=== PATIENT | male | born 1945 | race Caucasian/White ===

== ENCOUNTER → 2024-01-05 14:58 | Outpatient (REF) | payer MEDICARE, OTHER, SELFPAY | LOC: HWRCS 14:58 | PROVIDERS: ATTENDING PHYSICIAN Internal Medicine Cardiovascular Disease; FAMILY PHYSICIAN Family Medicine | DX: R06.09 Other forms of dyspnea (principal); R07.89 Other chest pain | CPT/HCPCS: 93306 ==

== ENCOUNTER → 2024-01-08 12:07 | Outpatient (REF) | payer MEDICARE, OTHER, SELFPAY | LOC: DHCBC/DCA 12:07 | PROVIDERS: ATTENDING PHYSICIAN Internal Medicine Cardiovascular Disease; FAMILY PHYSICIAN Family Medicine | DX: R06.09 Other forms of dyspnea (principal); R07.89 Other chest pain; I35.0 Nonrheumatic aortic (valve) stenosis | CPT/HCPCS: 78452; 93017; A9500; J2785 ==

== ENCOUNTER 2024-01-22 06:26 | Day surgery (SDC) | payer MEDICARE, OTHER, SELFPAY ==
[2024-01-22 06:40] VITALS: BMI 33.7
[2024-01-22 06:45] VITALS: BP 153/74
[2024-01-22 06:53] VITALS: BP 153/74
[2024-01-22 07:15] LABS: Hematocrit 39.8 % (39.0-52.0); Hemoglobin 13.7 g/dL (13.0-18.0); Mean Corp Hgb Conc. 34.4 g/dL (33.0-37.0); Mean Corpuscular Hgb 28.8 pg (27.0-31.0); Mean Corpuscular Volume 83.6 fL (80.0-94.0); Mean Platelet Volume 9.4 fL (7.4-10.4); Platelet Count 200 10^3/uL (130-400); Red Blood Cell Count 4.76 10^6/uL (4.70-6.10); Red Cell Dist. Width 13.2 % (11.5-14.5); White Blood Cell Count 7.6 10^3/uL (4.8-10.8)
[2024-01-22] MEDS: NSS 293 ML IV (07:21)
[2024-01-22 08:01] LABS: ALT (SGPT) 35 U/L (0-50); AST (SGOT) 35 U/L (17-59); Albumin 4.8 g/dl (3.5-5.0); Alkaline Phosphatase 44 U/L (38-126); Blood Urea Nitrogen 28 mg/dl (9-20); Calcium 9.4 mg/dl (8.4-10.2); Carbon Dioxide 24 mmol/L (22-30); Chloride 106 mmol/L (98-107); Estimated Creatinine Clearance 63 ml/min; Glucose 130 mg/dl (70-99); Potassium 4.1 mmol/L (3.5-5.1); Sodium 139 mmol/L (135-145); Total Bilirubin 0.5 mg/dl (0.2-1.3); Total Protein 7.5 g/dl (6.3-8.2); eGFR > 60.00
[2024-01-22 09:14] LABS: ACT-LR - POC 321 Seconds (116-155)
[2024-01-22 09:33] LABS: ACT-LR - POC 298 Seconds (116-155)
--- NOTE | 2024-01-22 10:02 | ITS.CL.CATH ---
[employer] - Catheterization
Cardiac Catheterization
Procedure Report:
RIGHT AND LEFT HEART STUDY WITH CORONARY INTERVENTION
Date of Procedure: January 22, 2024
Referring: Dr. Jeet Lew
PROCEDURES:
1. Right heart catheterization
2. Left heart catheterization with coronary and single-plane left ventriculography
3. Successful stenting of the distal circumflex into a terminal obtuse marginal branch with placement of a 3.5 x 18 mm Xience stent that was postdilated to 16 christine with a 3.5 mm noncompliant balloon
INDICATION: This is a 78-year-old gentleman with a past medical history notable for progressive aortic stenosis who presents to our office for evaluation of exertional chest tightness. His most recent echocardiogram was notable for a mean aortic
valve gradient of 34 mmHg and estimated aortic valve area 1.4 cm�. A stress study was notable for a small area of mildly decreased perfusion that was fixed in the basal to mid inferolateral and inferior segments consistent with soft tissue
attenuation as it improved with prone imaging. His LVEF was estimated at 63%. He continues to experience substernal chest tightness and is now referred for coronary angiography and assessment of his aortic stenosis
ACCESS: Right radial artery, 6 Filipino sheath in right brachial vein, 5 Filipino sheath. Both vascular access sites were obtained using ultrasound guidance and micropuncture
HEMODYNAMICS : mmHg
RA (m) : 12
RV (s/d) : 30/6, 11
PA (s/d, m) : 29/15, 20
PCWP (m) : 15
AO (s/d, m) : 128/58, 87
LV (s/d) : 159/15
LVEDP : 21
Cardiac Output: 7.25 L / min and cardiac Index: 3.5 L/ min / m-2
Systemic vascular resistance: 10.5 Wood units or 840 fpyuh-zmz-du(-5)
Pulmonary vascular resistance: 0.69 Wood units or 55 tumbj-wna-co(-5)
CORONARY FINDINGS
Dominance: Right
LEFT MAIN: Normal
LEFT ANTERIOR DESCENDING: The LAD arises normally from the left main running in the anterior interventricular groove. The LAD has diffuse noncritical luminal irregularities over its course.
CIRCUMFLEX: The circumflex is a medium caliber nondominant vessel. OM1 arises very proximally from the circumflex and runs in a distribution typical for a ramus intermedius branch. The mid circumflex has minor irregularities and there is a 80%
stenosis in the distal circumflex involving the bifurcation of OM 2 and OM 3. OM 2 is a small to medium caliber vessel arising from the atherosclerotic segment in the distal circumflex. OM 2 has minor irregularities. OM 3 is larger than OM 2 and
has an 80-90% stenosis proximally. The Griggs bifurcation class is 1,1,0.
RIGHT CORONARY ARTERY: The right coronary artery is a dominant vessel. There is a long 30-40% stenosis in the mid RCA with diffuse noncritical luminal irregularities from the mid to distal RCA had minor irregularity
VENTRICULOGRAPHY: The digital single-plane left ventricular ejection fraction is estimated at 65%. No regional wall motion abnormalities
ANGIOPLASTY PROCEDURE DETAIL: Upon review of the diagnostic catheterization from the decision was made to proceed with percutaneous revascularization of the high-grade stenosis in the distal circumflex extending into the large OM 3. Intravenous
heparin was administered and the ACT was monitored throughout the procedure and maintained within therapeutic limits. A 600 mg loading dose of clopidogrel was administered at the beginning of the coronary intervention. He received aspirin 324 mg
upon arrival and 81 mg this morning.
The origin of the left main was cannulated with a 6 Filipino EBU 3.5 guiding catheter and a short BMW guidewire was advanced to the distal portion of OM 2. A long BMW guidewire was advanced distally into OM 3. Balloon predilation was performed with
a 2.0 x 12 mm trek balloon and was followed by placement of a 3.5 x 18 mm Xience stent that was implanted at nominal pressures and postdilated with a 3.5 mm noncompliant balloon to 16 christine jailing the origin of OM 2. OM 2 developed a stenosis at its
origin, however, there was MICHELLE-3 flow distally
RADIATION SUMMARY: Fluoro Time (min): 15, Dose (mGy): 866, DAP (Gy.cm2) : 54.4
CONCLUSIONS
1. Coronary artery disease involving the distal circumflex into OM3 jailing the origin of OM 2. The vessel was stented with a 3.5 x 18 mm Xience stent that was implanted at nominal pressures and postdilated to high pressures with a 3.5 mm
noncompliant balloon
2. The mid right coronary artery has a long 30-40% stenosis.
3. Moderate aortic stenosis
4. Preserved left ventricular systolic function
RECOMMENDATIONS
1. Uninterrupted dual antiplatelet therapy for 6-12 months
2. Stressed the need for ongoing follow-up with Dr. Jeet Lew so his aortic valve gradients can be monitored more closely. His last office visit was nearly 4 years ago.
Copy to: Dr. Jeet Lew
[2024-01-22 10:03] VITALS: BP 136/65
[2024-01-22 10:06] VITALS: BP 136/65
--- NOTE | 2024-01-22 14:52 | W.PN.UPDATE ---
Update Note
Progress Note Update
78 yo WM s/p PCI LCx x 1 MARGI (same day). He feels good, no cp, sob, kandy diet, voiding, amb w/o dizziness, EKG SR no ST changes, R rad site c/d/i no HT. He will be on DAPT ASA/Plavix. He will continue BB, statin. Cardiac rehab c/s. He will f/u [facility]
in 4 weeks. He is for d/c home after 230p.
CONCLUSIONS
1. Coronary artery disease involving the distal circumflex into OM3 jailing the origin of OM 2. The vessel was stented with a 3.5 x 18 mm Xience stent that was implanted at nominal pressures and postdilated to high pressures with a 3.5 mm
noncompliant balloon
2. The mid right coronary artery has a long 30-40% stenosis.
3. Moderate aortic stenosis
4. Preserved left ventricular systolic function
RECOMMENDATIONS
1. Uninterrupted dual antiplatelet therapy for 6-12 months
2. Stressed the need for ongoing follow-up with Dr. Jeet Lew so his aortic valve gradients can be monitored more closely. His last office visit was nearly 4 years ago.
Copy to: Dr. Jeet Lew
== END 2024-01-22 14:35 | disposition home or self-care (01) ==
LOC: CATH 06:26
PROVIDERS: ATTENDING PHYSICIAN Internal Medicine Interventional Cardiology; FAMILY PHYSICIAN Family Medicine; OTHER PHYSICIAN Internal Medicine Cardiovascular Disease
DX: I25.10 Atherosclerotic heart disease of native coronary artery without angina pectoris (principal); R07.89 Other chest pain; I35.0 Nonrheumatic aortic (valve) stenosis; Z79.02 Long term (current) use of antithrombotics/antiplatelets; Z79.82 Long term (current) use of aspirin
CPT/HCPCS: 80053; 85027; 85347; 93005; 93460; C1725; C1769; C1874; C1894; C9600; Q9967

== ENCOUNTER → 2024-11-19 10:29 | Outpatient (REF) | payer MEDICARE, SELFPAY | LOC: HWRCS 10:29 | PROVIDERS: ATTENDING PHYSICIAN Internal Medicine Cardiovascular Disease; FAMILY PHYSICIAN Family Medicine | DX: I35.0 Nonrheumatic aortic (valve) stenosis (principal); I35.1 Nonrheumatic aortic (valve) insufficiency | CPT/HCPCS: 93306 ==

== ENCOUNTER 2025-05-13 10:57 | Inpatient (IN) | payer MEDICARE, SELFPAY ==
[2025-05-13] VITALS (16 sets, daily range): BP systolic 114–188; BP diastolic 58–90; BMI 31.7
--- NOTE | 2025-05-13 08:24 | ED.GENMED ---
History of Present Illness
General
Chief Complaint: Chest Pain
Source: patient
Exam Limitations: none
Time Seen by Provider: 05/13/25 08:14
Nursing documentation reviewed up to this point in time: agreed with
History of Present Illness
History of Present Illness:
The patient is a 80-year-old man with a past medical history of coronary artery disease who reports constant midsternal chest pain for 2 days that has waxed and waned in intensity. Patient reports being under a lot of stress, as his bppeyv-xo-xvb
yesterday. Patient denies any associated symptoms such as shortness of breath, nausea and vomiting and dizziness. There is no radiation of pain. Patient reports he was unable to sleep all night due to the pressure in his chest. Patient was
given 1 sublingual nitro and 324 mg of aspirin by paramedics. He reports his pain is nearly gone and rates it a 1 out of 10. Patient denies leg pain and leg swelling. Patient reports that at times his chest pain feels worse with exertion and is
relieved with rest. Additionally, he has been belching frequently and reports that when he belches it relieves the chest pain as well.
Past History
Past History
ED Past Medical History: CAD, HTN and Other (Asbestosis)
ED Past Surgical History: Cardiac
Social History
Tobacco: Former smoker
Alcohol: None
Drug: None
Personal:
Living: with family
Employment: Other
Family History
Family History: Other
Review of Systems
Review of Systems
Allergies reviewed?: Yes
All Other Systems: ROS reviewed and negative except as documented in HPI and ROS
Constitutional: Reports no symptoms
EENT: Reports no symptoms
Respiratory: Reports no symptoms
Cardiac: Reports chest pain
ABD/GI: Reports no symptoms
: Reports no symptoms
Musculoskeletal: Reports no symptoms
Skin: Reports no symptoms
Neurological: Reports no symptoms
Endocrine: Reports no symptoms
Hematologic/Lymphatic: Reports no symptoms
Psychiatric: Reports no symptoms
Phy Exam
Physical Exam
Physical Exam:
Physical Exam
General: no apparent distress, not acutely ill
Neck: supple. no meningeal signs. normal psoterior pharynx
Heart: s1/s2 regular rate and rhythm, no murmur. equal radial pulses.
Lungs: Diminished equal breath sounds throughout. No crackles or wheezing heard
Abdomen: normal bowel sounds. not tender. no CVAT
Neuro: alert and oriented. no focal neurological deficits
Skin: no rash
Psychiatric: well kept. interactive and cooperative
Extremities: no edema. no calf tenderness. negative homans. good distal pulses
Scores
Heart Score for Chest Pain Patients
STEMI patient?: No
History: Moderately Suspicious
ECG: Nonspecific Repolarization
Age: >/= 65 years
Risk Factors: >/= 3 Risk Factors or History of CAD
Troponin: >1 - <3 x Normal Limit
Heart Score for Chest Pain Patients: 7
Heart Score Risk: 72.7 % MACE over next 6 weeks
Course
Orders/Labs/Results
Orders:
Orders
05/13/25 08:17
Electrocardiogram (*1) Urgent
Reason for Study: Chest Pain
EKG- Treatment ONCE
05/13/25 08:29
Complete Blood Count/With Diff Urgent
Comprehensive Metabolic Panel Urgent
Troponin I Urgent
05/13/25 08:33
CR Chest - 2 Views Urgent
Comment:
Reason For Exam: CP
05/13/25 09:40
Morphine Sulfate 2 mg IV NOW STA
05/13/25 09:41
Heparin 4,000 units IV NOW STA
Pharmacy Request to Place See Dose Instructions PO NOW STA
Discontinue all Active Warfarin orders?: Yes
05/13/25 09:42
PTT Urgent
Comment: Obtain baseline before beginning heparin infusion if not already collected
Nursing to Place Non Medication Order As Directed
Physician Order: PTT 6 hours after initial start of Heparin infusion
05/13/25 09:45
Heparin INFUSION titrate rate - CONTINUOUS Heparin 25223 Units/250 ml 25,000 units in 250 ml IV PER PROTOCOL
Weight to be used for heparin protocol in kilograms (kg):: 94.6
Protocol:: Cardiac Tx/Acute Coronary
PTT Goal Range to be used:: PTT 73 to 111 seconds
Order type:: Initial
INITIAL Infusion Dose (UNITS/KG/hr) & then follow protocol:: 12 units/kg/hr
Infusion Dose in UNITS/hr & then follow protocol (UNITS/hr):: 1,000
INFUSION RATE in mL/hr & then follow protocol (mL/hr):: 10
PTT less than or equal to 64 seconds:: Increase rate by 200 units/hr (+ 2 mL/hr)
PTT 64.1 to 72.9 seconds:: Increase rate by 100 units/hr (+ 1 mL/hr)
PTT 73 to 111 seconds:: Target Range. No change in rate.
PTT 111.1 to 130.9 seconds:: Decrease rate by 100 units/hr (- 1 mL/hr)
PTT 131 to 199.9 seconds:: HOLD for 1 hr. Then decrease rate by 200 units/hr (- 2 mL/hr)
PTT greater than or equal to 200 seconds:: HOLD for 2 hrs & Notify Provider. Then decrease by 200 units/hr (-
2 mL/hr)
Lab follow-up:: Each change, PTT q6h until 2 consecutive are therapeutic. Then PTT
daily.
05/13/25 10:[address] See Dose Instructions IV DIRECTED
Abnormal Lab Results
05/13/25
08:29
MCHC 32.9 L g/dL
(33.0-37.0)
Absolute Neuts (auto) 8.1 H 10^3/uL
(1.4-6.5)
Absolute Lymphs (auto) 1.0 L 10^3/uL
(1.2-3.4)
Absolute Monos (auto) 0.7 H 10^3/uL
(0.1-0.6)
Neutrophils % 81.8 H %
(42.2-75.2)
Lymphocytes % 10.3 L %
(20.5-51.1)
BUN 22 H mg/dl
(9-20)
Glucose 150 H mg/dl
(70-99)
Troponin I 0.247 H* ng/ml
05/13/25 08:29
05/13/25 08:29
Vital Signs
Initial and Last Documented VS:
Initial Vital Signs
Pulse Resp BP Pulse Ox
74 16 157/66 95
05/13/25 08:18 05/13/25 08:18 05/13/25 08:18 05/13/25 08:18
Last Documented Vital Signs
Temp Pulse Resp BP Pulse Ox
98.6 F 68 16 137/73 97
05/13/25 08:32 05/13/25 09:00 05/13/25 09:00 05/13/25 09:00 05/13/25 09:00
MDM/Problems Addressed
Differential Diagnosis Includes:
GERD, gastritis, acute coronary syndrome
MDM/Problems Addressed:
Patient presents with acute chest pain
Chronic conditions affecting care: CAD
Acute Exacerbation and/or Progression of Chronic Illness:
Patient may have acute exacerbation of coronary artery disease
*Radiology
Radiology exam reviewed: preliminary read by ED provider (No infiltrates or pulmonary edema. Chest x-ray reviewed by me) and radiology read reviewed
*Pulse Oximetry
SaO2: 95
Oxygen Mode of Delivery: Room air
Patient hypoxic: no
*EKG
Interpreted by ED Provider?: Yes
Interpretation: abnormal
Comparison EKG: no changes
Rate: normal
Rhythm: sinus
[place]: left axis deviation
Interval: first degree heart block
QRS Pattern: left vent hypertrophy
Ischemia: non-specific ST changes
*Mechanical Car Checker Interpretation
Rate: normal
Interpretation: normal
Rhythm: sinus
*Critical Care Note
Total Time (30-74mins, 75-104mins- exclusive of procedures): 35 minutes (35 minutes of critical care given to patient including frequent reassessments of his chest pain, speaking to the hospitalist, cardiology as well as his )
Data Reviewed
Review of Other/Old Records Reveals: Testing (Cardiac catheterization reviewed from 2023 when patient had a cardiac stent placed)
Source: patient and spouse
Patient Management
Social determinants of health affecting care: Living situation and Strong social support
Discussion with other providers: Hospitalist and Other
Escalation/DeEscalation of care consider admission/obs:
Case discussed with Dr. Hammond from cardiology who agreed to evaluate patient on consult
ED Attending Note
-
Portions of this chart may have been created with voice recognition software.� Occasional wrong word or��sound alike� substitutions may have occurred due to the inherent limitations of voice recognition software.
Discharge Plan
Departure
Patient Disposition: Admit
Date of Disposition: 05/13/25
Time of Disposition: 09:17
Admit to: Telemetry
Presentation/result/management discussed w/ accepting MD/DO: Hospitalist
Patient with high blood pressure during this ER visit?: Yes
Condition: Good
Covid-19: Not Applicable
Discharge Problem:
ACS (acute coronary syndrome)
Prescriptions:
No Action
famotidine [Pepcid] 40 mg Tablet
40 mg PO DAILY
carvedilol 3.125 mg Tablet
3.125 mg PO BID
losartan 25 mg Tablet
25 mg PO DAILY
aspirin 81 mg Tablet
81 mg PO DAILY
rosuvastatin 20 mg Tablet
20 mg PO DAILY
Centrum Silver Men [id number] mcg Tablet
1 tab PO DAILY
Repatha SureClick 140 mg/mL Pen Injector
140 mg SC Q2W
Blink NutriTears 15 mcg-20 mg- 4 mg-200 mg Capsule
1 cap PO DAILY
Referrals:
UNKNOWN - PT DOES,NOT KNOW [Family Provider]
Interventions
Interventions:
*Risk Screen - Suicide Last Done: 05/13/25 08:20
*General Assessment Last Done: 05/13/25 08:21
*Neglect/Abuse Screening Last Done: 05/13/25 08:20
*ED- Fall Risk Assessment Last Done: 05/13/25 08:22
*ED COVID-19 Vaccine History Last Done: 05/13/25 08:22
*ED Influenza Vaccine History Last Done: 05/13/25 08:22
ED- Cardiac Assessment Last Done: 05/13/25 08:23
Discharge Date and Time
Print Language: ITALIAN
[2025-05-13 08:38] LABS: Hematocrit 43.1 % (39.0-52.0); Hemoglobin 14.2 g/dL (13.0-18.0); Mean Corp Hgb Conc. 32.9 g/dL (33.0-37.0); Mean Corpuscular Volume 89.4 fL (80.0-94.0); Nucleated Red Blood Cells % 0 % (-); Platelet Count 158 10^3/uL (130-400); Red Cell Dist. Width 13.1 % (11.5-14.5)
[2025-05-13 08:52] LABS: ALT (SGPT) 19 U/L (0-50); AST (SGOT) 26 U/L (17-59); Albumin 4.8 g/dl (3.5-5.0); Alkaline Phosphatase 44 U/L (38-126); Blood Urea Nitrogen 22 mg/dl (9-20); Calcium 9.2 mg/dl (8.4-10.2); Carbon Dioxide 30 mmol/L (22-30); Chloride 101 mmol/L (98-107); Estimated Creatinine Clearance 74 ml/min; Glucose 150 mg/dl (70-99); Potassium 4.1 mmol/L (3.5-5.1); Sodium 136 mmol/L (135-145); Total Protein 7.6 g/dl (6.3-8.2); eGFR > 60.00
[2025-05-13 09:07] LABS: Troponin I 0.247 ng/ml
[2025-05-13] MEDS: MORPHINE SULFATE 2 MG IV (09:45)
--- NOTE | 2025-05-13 09:53 | CM ---
Patient seen at bedside in ED with present. Patient lives in a 2 story home with first floor bedroom. Patient PCP is new as of the end of this month Dr. Dorsey and patient uses the [facility] in [place] on [facility]. Patient has no DME or VN
needs in the past. Patient with recent family member's . Patient has no needs at this time. CM will continue to follow for discharge planning needs.
Plan; home with VN vs home with no needs pending medical treatment plan
[2025-05-13] MEDS: HEPARIN 25000 UNITS/250 ML IV (10:03)
[2025-05-13] MEDS: HEPARIN 4000 UNITS IV (10:03)
--- NOTE | 2025-05-13 10:12 | HPS.HSE ---
Addendum entered and electronically signed by Consuelo Hoover MD 05/13/25 12:11:
Attending�addendum:
I saw and evaluated the patient. I reviewed the resident�s note and agree with findings and plan as documented in the resident�s note.��patient is a pleasant 80 years old with history of coronary artery disease status post, most recent cardiac cath
in December 2023, presented to the ER with chest pain which started yesterday morning, seen evaluated by cardiology in the ER, echo done in the ER, for cardiac cath today.
Patient seen and examined at bedside, at bedside, still complaining of mild substernal chest pain, denied shortness of breath, no abdominal pain, no nausea, no vomiting, no diarrhea or constipation.
Physical�exam:
GENERAL : Patient is awake, alert, oriented x3
HEENT: Nonicteric sclerae, PERRLA, EOMI. Oropharynx clear. Moist mucous membranes. Conjunctivae appear well perfused.
CHEST: Chest wall is nontender.
HEART: Regular rate and rhythm without murmurs.
LUNGS: Clear to auscultation bilaterally.
ABDOMEN: Soft, positive bowel sounds, nontender, no organomegaly.
RECTAL: Deferred.
MUSCLES/EXTREMITIES: No abnormal range of motion, no swelling.SKIN: No rash, no excessive bruising, petechiae, or purpura.
NEUROLOGIC: Cranial nerves II-XII intact without motor/sensory deficit.
�
Assessment/plan:
Non-STEMI.
History of coronary artery disease.
Presented with chest pain after emotional stress.
Seen by cardiology and plan for cardiac cath today
Hypertension/hyperlipidemia/GERD.
Continue current meds
CODE STATUS: Full code
DVT prophylaxis: Heparin
Diet: N.p.o.
Family communication: Discussed with family at bedside
Disposition: Cardiac cath today
�
Total time spent on today�s encounter was 75 minutes which included time spent in counseling the patient/family regarding diagnosis and treatment plan as listed above, goals of care, and symptom management. Case was discussed with nursing staff,
specialists, and care coordinators/case management. All labs and imaging personally reviewed by me. Remainder the time spent in detailed review of previous records, lab data, imaging, and other medical provider documentation.
Original Note:
Family Physician
-
Family Physician: NOT KNOW UNKNOWN - PT DOES
Chief Complaint
-
Chest pain
History of Present Illness
Patient is a 80 year old male with a past medical history of HTN, CAD and asbestosis who presented to the ED with chest pain. Patient has been having substernal, chest pain described as ' tightness' for the past 2 days after his ciymih-up-tuv
(stressful experience). He states the pain is constant, but the pain level waxes and wanes. He initially thought this was due to indigestion and took Pepto-Bismol which did not provide any relief. Patient finds relief of symptoms with
rest. Patient was unable to sleep due to the symptoms, and woke up this morning and called EMS. He denies shortness of breath, nausea, vomiting, abdominal pain, dizziness, syncope, urinary symptoms, or any other symptoms. He is compliant to all
prescription medications. Last Echo October 2024.
Medical History
Past Medical History
Past Medical History: Reports CAD, HTN, Hypercholesterolemia and Other (Asbestosis)
Past Surgical History: Reports Cardiac (Catheterization)
Additional Past Surgical History:
Hernia
Varicose vein removal
Knee surgery 2022
Social History
Tobacco: Former Smoker
Personal:
Living: With Family
Family History
Family History: Not pertinent
Allergies / Home Medications
Allergies reflects when Allergies were last updated in [facility].
Home Medications with original date entered in [facility]
Allergy/Medication List:
Allergies
Allergy/AdvReac Type Severity Reaction Status Date / Time
No Known Allergies Allergy Unverified 05/13/25 08:29
Home Medications
aspirin 81 mg tablet 81 mg PO DAILY Blood Clot Prevention/Tx 01/22/24
famotidine 40 mg tablet (Pepcid) 40 mg PO DAILY Gastrointestinal Issue 01/22/24
losartan 25 mg tablet 25 mg PO DAILY Blood Pressure 01/22/24
carvedilol 6.25 mg tablet (Coreg) 6.25 mg PO BID Blood Pressure 05/13/25
evolocumab 140 mg/mL subcutaneous pen injector (Repatha SureClick) 140 mg SC Q2W 05/13/25
ibuprofen 200 mg tablet (Advil) 400 mg PO Q6HPRN PRN mild pain 05/13/25
rosuvastatin 10 mg tablet (Crestor) 10 mg PO DAILY High Cholesterol 05/13/25
therapeutic multivitamin 1 tab PO DAILY Supplement 05/13/25
vitamins A,C,K-jzqd-jnvvmd 2,148 mcg-113 mg-45 mg-17.4 mg tablet (PreserVision AREDS) 1 tab PO DAILY Supplement 05/13/25
Review of Systems
-
History Source: Patient
Constitutional: Reports No Symptoms
EENT: Reports No Symptoms
Respiratory: Reports No Symptoms
Cardiac: Reports Chest Pain
Abdomen/GI: Reports No Symptoms
: Reports No Symptoms
Musculoskeletal: Reports No Symptoms
Skin: Reports No Symptoms
Neurological: Reports No Symptoms
Endocrine: Reports No Symptoms
Hematologic/Lymphatic: Reports No Symptoms
Psych: Reports No Symptoms
Physical Exam
Vital Signs
Vital Signs
Temp Pulse Resp BP Pulse Ox
98.6 F 68 16 137/73 97
05/13/25 08:32 05/13/25 09:00 05/13/25 09:00 05/13/25 09:00 05/13/25 09:00
Physical Exam
General: Well Developed, Well Nourished, No Apparent Distress, Comfortable, Conversant and Obese
HEENT: NormoCephalic, Anicteric, Moist mucous membranes and Atraumatic
Respiratory: Clear and Non Labored Respirations
Cardiac: S1/S2 and Regular Rhythm
GI: Soft, Non Tender, Non Distended, Normal Bowel Sounds and No Hepatosplenomegaly
Musculoskeletal: No Clubbing, No Cyanosis and No Edema
Skin: Warm
Neuro: Awake, AO x 3 and Nonfocal/grossly intact
Psych: Calm and Intact Judgment/Insight
Laboratory Results
-
05/13/25 08:
05/13/25
Laboratory Results
Total Bilirubin 0.5 mg/dl (0.2-1.3) 05/13/25
AST 26 U/L (17-59) 05/13/25
ALT 19 U/L (0-50) 05/13/25
Alkaline Phosphatase 44 U/L (38-126) 05/13/25
Troponin I 0.247 ng/ml H* 05/13/25:
Data Reviewed
-
Lab Data: Labs Reviewed by me, Discussed with Physician, Discussed with Patient and Discussed with Family
Old Records: Reviewed
Impression/Plan
-
IMPRESSION:
A 80-year-old male with a past medical history of CAD, hypertension presenting with 2 days of substernal, constant chest pain relieved with rest, initially attributed to indigestion, now found to have elevated troponin of 0.247 with no acute
ischemic changes on EKG. Symptoms began during a period of emotional stress ( of [id number]). Clinical picture concerning for NSTEMI.
PLAN:
# Acute coronary syndrome/NSTEMI
# History of coronary artery disease
Troponin elevated at 0.247 with ischemic type chest pain
EKG without acute changes
Trend troponin every 3 hours
Repeat EKG
Continue heparin drip per ACS protocol
Continue aspirin 81 mg, statin, beta-milton
Nitroglycerin as needed for pain
Cardiology consult
# Hyperglycemia
Glucose 150, may be stress related
Continue to monitor
# Hypertension
Continue losartan
# Hypercholesterolemia
Continue statin
# GERD
Continue Pepcid
FULL CODE
DVT prophylaxis: IV heparin
--- NOTE | 2025-05-13 10:13 | CON.CAR ---
Addendum entered and electronically signed by Elli Hammond DO 05/13/25 14:20:
I saw and examined the patient.
The Keymodule Assembly Machine Tender's note was reviewed and I agree with the note.
Comment: Patient was seen and examined with at bedside and seen again following cardiac catheterization. Following cardiac catheterization he is chest pain-free and feels well.
.
Patient is a 80-year-old male with past medical history of CAD status post distal circumflex into OM 3 PCI, jailing OM 2 12/2023, moderate , mild AI, mild MR, hypertension, hyperlipidemia, asbestosis who presents to [facility] for evaluation of chest
pain. He reports over the last several days he has noticed waxing and waning discomfort which has become progressively worse. Last night he states he could not sleep. He reports the pain is a central tightness without radiation. He initially
thought this was due to his known hiatal hernia and tried Pepto and Tums which temporarily helped, but the pain returned. He reports some left arm discomfort this morning. Blood pressure was elevated while and route with EMS, received sublingual
nitro which improved blood pressure and chest pain. He reports his Plavix was stopped approximately 6 months ago at direction of primary operations officer. He and family have been under increased stress as his [id number] yesterday.
Initial troponin 0.247.
General: No acute distress, AAOX3, lying supine after cardiac catheterization
Neck: Negative JVD
Heart: Regular. Positive S1-S2. 2 out of 6 systolic murmur.
Lungs: CTA b/l, negative wheezes/rales/rhonchi
Abd: Positive BS, NT/ND, neg rebound/rigidity/guarding
Ext: No edema. Right radial with compression device following radial attempt at cath. Right groin site with dressing, clean dry and intact without hematoma or ecchymosis
Neuro: nonfocal
Plan:
History of coronary artery disease with chest pain consistent with non-STEMI
- Initial troponin 0.247, will trend to peak
- Initially placed on IV heparin along with outpatient aspirin and referred for cardiac catheterization
- Will await official cath report however patient had 3 drug-eluting stents placed to RCA
- 2D echocardiogram personally reviewed with normal biventricular size and systolic function and no obvious wall motion abnormalities at rest. Moderate aortic stenosis with peak/mean transaortic gradients 44/24 mmHg and mild AI, similar to study in
October 2024.
- Continue aspirin and Plavix continue aspirin and initiated on Brilinta cardiac catheterization which will be continued for at least 1 year
-Check fasting lipid profile in the morning. Patient is on Repatha and rosuvastatin as an outpatient
- Supportive post OR care
- Cardiac rehab
Hypertension
�Blood pressure are elevated and we will follow trends. Continue carvedilol 6.25 mg twice daily and losartan 25 mg once daily. If blood pressures remain elevated will increase losartan.
Hyperglycemia, hemoglobin A1c pending.
Original Note:
Consultation
Consultation Request
Date/Time Consultation Performed: 05/13/25
Requesting Provider: Dr. Angulo
Performing Provider: Adri Mckenzie PA-C for Dr. Hammond
Reason for Consultation: CP
Medical History
-
Chief Complaint: CP
History of Present Illness:
Patient is a 80-year-old male with past medical history of CAD status post distal circumflex into OM 3 PCI, jailing OM 2 12/2023, moderate , mild AI, mild MR, hypertension, hyperlipidemia, asbestosis who presents to [facility] for evaluation of chest
pain. He reports over the last several days he has noticed waxing and waning discomfort which has become progressively worse. Last night he states he could not sleep. He reports the pain is a central tightness without radiation. He initially
thought this was due to his known hiatal hernia and tried Pepto and Tums which temporarily helped, but the pain returned. He reports some left arm discomfort this morning. Blood pressure was elevated while and route with EMS, received sublingual
nitro which improved blood pressure and chest pain. He reports his Plavix was stopped approximately 6 months ago at direction of primary operations officer. He and family have been under increased stress as his [id number] yesterday.
Initial troponin 0.247. Cardiology consulted for evaluation of NSTEMI.
PMH:
CAD status post distal circumflex into OM 3 PCI, jailing OM 2 12/2023
Moderate
Mild AI
Mild MR
Hypertension
Hyperlipidemia
Hiatal hernia
History of asbestosis
Former smoker
Past Medical History
Past Medical History: Other (in HPI)
Social History
Tobacco: Former Smoker
Personal:
Living: With Family
Employment: Retired
Family History
Family History: Other (PPM in father)
Allergies / Home Medications
Allergy/AdvReac Type Severity Reaction Status Date / Time
No Known Allergies Allergy Unverified 05/13/25 08:29
�Medication �Instructions �Recorded �Confirmed �Type
aspirin 81 mg tablet 81 mg PO DAILY Blood Clot 01/22/24 05/13/25 History
Prevention/Tx
famotidine 40 mg tablet (Pepcid) 40 mg PO DAILY Gastrointestinal 01/22/24 05/13/25 History
Issue
losartan 25 mg tablet 25 mg PO DAILY Blood Pressure 01/22/24 05/13/25 History
carvedilol 6.25 mg tablet (Coreg) 6.25 mg PO BID Blood Pressure 05/13/25 05/13/25 History
evolocumab 140 mg/mL subcutaneous 140 mg SC Q2W 05/13/25 05/13/25 History
pen injector (Repatha SureClick)
ibuprofen 200 mg tablet (Advil) 400 mg PO Q6HPRN PRN mild pain 05/13/25 05/13/25 History
rosuvastatin 10 mg tablet (Crestor) 10 mg PO DAILY High Cholesterol 05/13/25 05/13/25 History
therapeutic multivitamin 1 tab PO DAILY Supplement 05/13/25 05/13/25 History
vitamins A,C,T-mhpo-hrctcs 2,148 1 tab PO DAILY Supplement 05/13/25 05/13/25 History
mcg-113 mg-45 mg-17.4 mg tablet
(PreserVision AREDS)
Review of Systems
-
History Source: Patient and Family
All other systems: Negative unless noted
Physical Exam
Vital Signs
Temp Pulse Resp BP Pulse Ox
98.6 F 68 16 137/73 97
05/13/25 08:32 05/13/25 09:00 05/13/25 09:00 05/13/25 09:00 05/13/25 09:00
Lab Results
05/13/25 08:29
05/13/25 08:29
Troponin I 0.247 ng/ml H* 05/13/25 08:29
Physical Exam
General: No Apparent Distress and Comfortable
HEENT: Normocephalic, Anicteric and Moist Mucous Membranes
Respiratory: Clear and Non Labored Respirations
Cardiac: S1/S2, Regular Rhythm and Murmur
GI: Soft, Non Tender, Non Distended and Normal Bowel Sounds
Musculoskeletal: No Clubbing, No Cyanosis and No Edema
Skin: Warm and Dry
Neuro: AO x 3
Impression / Plan
-
Primary Outsole Molder: Dr. LUCINA Lew
Assessment:
Presentation with CP
NSTEMI
CAD status post distal circumflex into OM 3 PCI, jailing OM 2 12/2023
Moderate
Mild AI
Mild MR
Hypertension
Hyperlipidemia
Hiatal hernia
History of asbestosis
Former smoker
ECHO 11/19/24: EF 60-65%, mild MR, moderate MR with peak/mean gradients 45/28 mmHg, SHASHA 1.2 cm�, mild to moderate AR, mild TR, PAP 25 to 30 mmHg
Plan:
- Patient presented with chest pain
- Initial troponin 0.247, trend to peak
- EKG SR with LAFB and 1st degree av block
- CXR with no acute abnormalities however possible progression of asbestosis noted
- Pain improved after sublingual nitro en route, however states is presently 1-2 out of 10. Would provide additional sublingual nitro if continues
- ER starting IV heparin
- Urgent echo ordered, last from 2023 as above, preserved EF and mod
- N.p.o. for cardiac catheterization today. reviewed procedure with patient and at bedside. last cath from 12/2023 reviewed, did have 30-40% RCA stenosis at that time
- Continue aspirin, reports OP compliance. plavix had been stopped ~ 6 months ago as directed
- Check CVE, hemoglobin A1c
- on crestor and repatha as OP
- BPs improved in ER. continue OP coreg, losartan
- expressed my condolences regarding recent loss of sister in law
-d/w ER nursing
Data Reviewed
-
EKG: Tracing Personally Visualized and interpreted
Radiology: Report Reviewed by me
Medical Tests (Nuc Med, Echo etc): Report Reviewed by me
Labs: Labs Reviewed by me
Old Records: Reviewed
[2025-05-13 10:17] LABS: APTT 30.2 Sec (23.4-35.0)
[2025-05-13] MEDS: NITROSTAT (SUBLINGUAL) 0.4 MG SL (10:43)
[2025-05-13 12:08] LABS: ACT-LR - POC 218 Seconds (116-155)
[2025-05-13 12:20] LABS: ACT-LR - POC 314 Seconds (116-155)
[2025-05-13 12:37] LABS: ACT-LR - POC 279 Seconds (116-155)
[2025-05-13 12:54] LABS: ACT-LR - POC 329 Seconds (116-155)
[2025-05-13 13:18] LABS: ACT-LR - POC 274 Seconds (116-155)
--- NOTE | 2025-05-13 13:37 | ITS.CL.CATH ---
General Car Yard Supervisor - Catheterization
Cardiac Catheterization
Procedure Report:
LEFT HEART CATH AND CORONARY INTERVENTION
Date of Procedure: May 13, 2025
Referring: Dr. Jeet Lew
PROCEDURES:
1. Coronary angiography
2. Successful stenting of proximal to distal right coronary artery with overlapping 3.0 x 8 mm and 3.0 x 38 mm Roger stents that were implanted at nominal pressures and postdilated with a 3.25 mm noncompliant balloon to 18 atmospheres
3. Successful stenting of the proximal PDA with a 2.0 x 15 mm Montgomery stent that was implanted at nominal pressures
INDICATION: This is a 80-year-old gentleman with a prior history of aortic stenosis and coronary artery disease with abnormal stress study for which he was referred for coronary angiography and found to have a high-grade stenosis in the distal
circumflex extending into a terminal obtuse marginal branch. He underwent successful stenting with placement of a 3.5 x 18 mm Xience stent that was implanted at 16 christine and postdilated with a 3.5 mm noncompliant balloon. He now presents for
evaluation of almost persistent substernal chest pressure beginning yesterday and lasting through this morning. At times his pain would improve but never completely resolved and his troponin was found to be mildly elevated. He continued to
experience chest discomfort on medical therapy and is now referred for emergent coronary angiography.
He had an echocardiogram performed prior to his arrival to the catheterization laboratory and his mean aortic valve gradient was 24 mmHg with mild-moderate aortic insufficiency.
ACCESS: Right radial artery, 6 Uzbek sheath and right common femoral artery using ultrasound guidance and micropuncture with placement of a 6 Uzbek sheath
Note: The ascending aorta proved exceedingly difficult to cannulate from right radial access. The diagnostic catheterization was done via the right radial artery. Unfortunately, the ability to torque a guide catheter to engage the right coronary
ostium was very limited and resulted in guide catheter trauma/kink. At this point the decision was made to obtain arterial access in the right common femoral artery
HEMODYNAMICS (mmHg):
AO (s/d, m) : 120/74, 94
CORONARY FINDINGS
Dominance: Right
LEFT MAIN: Normal
LEFT ANTERIOR DESCENDING: The LAD arises normally from the left main running in the anterior interventricular groove. Diffuse noncritical coronary disease is noted.
CIRCUMFLEX: The circumflex is a large-caliber nondominant vessel. OM1 arises very proximally and runs in a distribution typical for a ramus intermedius. The mid circumflex stent extends into a terminal large OM 3 and jails a smaller OM 2. The
stent is widely patent and mild ostial stenosis persists at the origin of OM 2 with there is MICHELLE-3 flow distally.
RIGHT CORONARY: The right coronary artery is a dominant vessel with long 50% mid stenosis and 100% occlusion in the distal vessel.
VENTRICULOGRAPHY: Not done
ANGIOPLASTY PROCEDURE DETAIL: We initially tried to cannulate the origin of the right coronary artery from the right radial approach. Significant innominate tortuosity resulted in limited guide torque and ultimately the decision was made to
approach the right coronary ostium from the right common femoral arterial access. Ultrasound guidance was utilized and a 6 Uzbek sheath was inserted. The origin of the RCA was cannulated with a 6 Uzbek JR4 guiding catheter and a BMW guidewire
across the distal occluded segment with a moderate degree of difficulty and was then advanced into the distal vessel. Intravenous heparin was monitored throughout the procedure and the ACT was monitored closely.
Balloon predilation was performed using a 2.0 x 12 mm Euphora balloon and anterograde flow was restored. A 3.0 x 38 mm Roger stent was then advanced over the guidewire and position with angiographic and fluoroscopic guidance. The stent was
implanted at nominal pressures. Angiography now demonstrated absence of flow in the PDA. The image intensifier was moved to a SURINAMESE cranial view and a stenotic segment was noted in the proximal portion of the PDA. Balloon dilation was performed
with a 2 mm Euphora balloon and was followed by placement of a 2.0 x 15 mm Montgomery stent that was implanted at nominal pressures. I attempted to pass a 3.25 mm noncompliant balloon into the mid RCA stent in order to postdilate the stent to high
pressures. Unfortunately, the 3.25 mm noncompliant balloon would not cross the stented segment. The noncompliant balloon was removed and a GuideLiner was advanced into the proximal portion of the stent and help to facilitate passage of the 3.25 mm
noncompliant balloon. The stented segment was postdilated at 16 christine distally and 18 to 20 christine in the mid to proximal portion of the stent. The 38 mm Roger stent did not fully cover the proximal RCA plaque and the decision was made to place a 3.0 x
8 mm Roger stent overlapping and proximal to the previously placed stent. The Roger stent was implanted at nominal pressures and the entire segment was postdilated to 18 christine with a 3.25 mm noncompliant balloon with a nice angiographic result
SEDATION: 90 minutes of procedural sedation was utilized. An independent medical i d sales was present to assist with and help manage the patient's level of consciousness and physiologic status
RADIATION SUMMARY: Fluoro Time (min): 26.7, Dose (mGy): 1872, DAP (Gy.cm2) : 146
CONCLUSIONS
1. Evolving inferior wall non-ST segment elevation myocardial infarction with 100% occlusion of the distal RCA. Successful stenting of the proximal to distal RCA with overlapping 3.0 x 8 mm and 3.0 x 38 mm Montgomery stents that were implanted at
nominal pressures and postdilated to high pressures with a 3.25 mm noncompliant balloon between 18 and 20 christine
2. Successful stenting of the PDA with a 2.0 x 15 mm Montgomery stent that was implanted at nominal pressures
3. Patent mid circumflex-OM 3 stent
4. Known aortic stenosis. The aortic valve was not crossed or interrogated during this procedure
RECOMMENDATIONS
1. Uninterrupted dual antiplatelet therapy for 1 year
2. Secondary risk modification. May need intensification of lipid-lowering. In the past he had been treated with ezetimibe. Await repeat lipids
3. Check fasting lipid profile and hemoglobin A1c
4. Continue to trend serial troponin
Copy to: Dr. Jeet Lew
--- NOTE | 2025-05-13 13:37 | PTCARENOTE ---
Received pt from labor gang supervisor, AAOx3, right radial band CDI, Right groin CDI. Pt denies chest pain and SOB at this time, SR on the monitor. and daughter are in the room, call stauffer in reach.
[2025-05-13] MEDS: NSS 1000 IV (14:05)
[2025-05-13 15:09] LABS: Troponin I 40.200 ng/ml
--- NOTE | 2025-05-13 15:26 | CM ---
Pricing on Brilinta through the patient's [employer], ID#[id number] is covered at a $0 copay. Ticagrelor is also covered at $0 copay. It is in stock at the [facility] on [address] . Script sent over and received, medication is ready
for pickup.
--- NOTE | 2025-05-13 15:58 | PTCARENOTE ---
Pt.'s initial troponin was 0.247 before cath, upon arriving to IVU troponin level came back 40.200. Outboard Motor Mechanic made aware. Will continue to trend. VSS, pt has no complaints at this time.
[2025-05-13] MEDS: NON-FORMULARY ITEM 140 MG SC (17:58)
--- NOTE | 2025-05-13 18:26 | PTCARENOTE ---
Pt's radial band removed at 17:50, area cleaned, dressing applied and is CDI. Femoral dressing CDI, no issues with bleeding, VSS, SR on the monitor. Second troponin drawn and is pending results. Pt tolerating diet and has no complaints, call stauffer
in reach, OOB to chair x 1 and tolerating well.
[2025-05-13 18:41] LABS: Troponin I 29.900 ng/ml
[2025-05-13] MEDS: COREG 6.25 MG PO (19:53)
--- NOTE | 2025-05-13 20:44 | PTCARENOTE ---
Received pt @ change of shift. AAOx3, VSS-- NSR w/ 1st degree AV block on monitor. Right radial site clean, dry, intact-- no ecchymosis, swelling, or tenderness. Soft to touch. Right groin site clean, dry, and intact. Little ecchymosis present, soft
to touch. Pt denies chest pain, SOB @ this time. Trops have begun trending down. Discussed plan of care. Pt verbalizes understanding. Educated pt on not pushing up with hand. Pt agrees to use call stauffer for assistance. Call stauffer within reach.
[2025-05-13] MEDS: BRILINTA 90 MG PO (22:16)
[2025-05-14] VITALS (7 sets, daily range): BP systolic 106–124; BP diastolic 36–69; BMI 30.6
--- NOTE | 2025-05-14 02:59 | PTCARENOTE ---
@ 0250 pt had 5 second pause. Asymptomatic. States 'just rolling over.' Informed Lenore Chen NP.
[2025-05-14 05:03] LABS: Hematocrit 37.4 % (39.0-52.0); Hemoglobin 12.8 g/dL (13.0-18.0); Mean Corp Hgb Conc. 34.2 g/dL (33.0-37.0); Mean Corpuscular Volume 86.2 fL (80.0-94.0); Nucleated Red Blood Cells % 0 % (-); Platelet Count 138 10^3/uL (130-400); Red Cell Dist. Width 13.1 % (11.5-14.5)
[2025-05-14 05:45] LABS: ALT (SGPT) 26 U/L (0-50); AST (SGOT) 70 U/L (17-59); Albumin 4.0 g/dl (3.5-5.0); Alkaline Phosphatase 46 U/L (38-126); Blood Urea Nitrogen 20 mg/dl (9-20); Calcium 9.0 mg/dl (8.4-10.2); Carbon Dioxide 27 mmol/L (22-30); Chloride 105 mmol/L (98-107); Estimated Creatinine Clearance 66 ml/min; Glucose 113 mg/dl (70-99); HDL Cholesterol 36 mg/dl; LDL Cholesterol, Calculated 18 mg/dl; Potassium 4.0 mmol/L (3.5-5.1); Sodium 138 mmol/L (135-145); Total Protein 6.4 g/dl (6.3-8.2); Very Low Density Lipoprotein 28 mg/dl (0-30); eGFR > 60.00
[2025-05-14] MEDS: PEPCID 40 MG PO (07:58)
[2025-05-14] MEDS: CRESTOR 10 MG PO (07:58)
[2025-05-14] MEDS: BRILINTA 90 MG PO ×2 (07:58→19:35)
[2025-05-14] MEDS: COZAAR 25 MG PO (07:58)
[2025-05-14] MEDS: COREG 6.25 MG PO (07:58)
[2025-05-14] MEDS: ASPIR LOW (ENTERIC COATED) 81 MG PO (07:58)
--- NOTE | 2025-05-14 08:30 | PTCARENOTE ---
Assumed care. Patient awake and alert, son at bedside. Denies pain or shortness of breath. Right radial, right brachial and right femoral cath sites CDI. NSR in the 80's, VSS, in chair eating breakfast
[2025-05-14 09:14] LABS: Glycohemoglobin (HgbA1c) 5.8 % (4.0-5.9)
--- NOTE | 2025-05-14 09:43 | W.PN.HOSP.TC ---
Addendum entered and electronically signed by Consuelo Hoover MD 05/14/25 11:35:
Attending�addendum:
I saw and evaluated the patient. I reviewed the resident�s note and agree with findings and plan as documented in the resident�s note.��Patient seen and examined at bedside, denies any chest pain or shortness of breath, no abdominal pain, no nausea,
no vomiting, no diarrhea or constipation.
Status post cardiac cath and stent yesterday.
Had episodes of pauses last night.
Physical�exam:
GENERAL : Patient is awake, alert, oriented x3
HEENT: Nonicteric sclerae, PERRLA, EOMI. Oropharynx clear. Moist mucous membranes. Conjunctivae appear well perfused.
CHEST: Chest wall is nontender.
HEART: Regular rate and rhythm without murmurs.
LUNGS: Clear to auscultation bilaterally.
ABDOMEN: Soft, positive bowel sounds, nontender, no organomegaly.
RECTAL: Deferred.
MUSCLES/EXTREMITIES: No abnormal range of motion, no swelling.SKIN: No rash, no excessive bruising, petechiae, or purpura.
NEUROLOGIC: Cranial nerves II-XII intact without motor/sensory deficit.
�
Assessment/plan:
Non-STEMI.
History of coronary artery disease.
Status post cardiac cath/stent.
Appreciate cardiology input
Sinus pauses.
Lower carvedilol.
Monitor overnight
Hypertension/hyperlipidemia/GERD.
Continue current meds
CODE STATUS: Full code
DVT prophylaxis: Heparin
Diet: N.p.o.
Family communication: Discussed with family at bedside
Disposition: Monitor overnight
�
Total time spent on today�s encounter was 55 minutes which included time spent in counseling the patient/family regarding diagnosis and treatment plan as listed above, goals of care, and symptom management. Case was discussed with nursing staff,
specialists, and care coordinators/case management. All labs and imaging personally reviewed by me. Remainder the time spent in detailed review of previous records, lab data, imaging, and other medical provider documentation.
Original Note:
Today's Communication/Plan
-
Appreciate cardiology recs given sinus pauses
DAPT x 1 year
Assessment / Plan
Assessment / Plan
Impression:
80-year-old male with a past medical history of hypertension, coronary artery disease and asbestosis who presented to the ED with 2 days of substernal chest tightness beginning after significant emotional stressor of [id number] passing away.
Pain was constant with waxing/waning intensity, unrelieved by Pepto-Bismol and improved with rest prompting EMS activation on 05/13/2025. Initial troponins were elevated, EKG showed no acute changes.
Plan:
# NSTEMI
# s/p cardiac catheterization 05/13/2025
# Sinus pause- 2 episodes overnight after cardiac catheterization
# Coronary artery disease
# Prediabetes
2 days of exertional/constant substernal chest tightness following emotional stress. Relieved with rest.
ED findings: Elevated troponin, now downtrending 40.200 --> 29.900 postprocedure
Cardiology following. Recommends dual antiplatelet therapy for 1 year. Continue aspirin 81 mg daily and Brilinta 90 mg p.o. twice daily
Continue rosuvastatin 10 mg. Lipid profile 05/13 normal
Patient had 2 episodes of 5-second long sinus pauses overnight after catheterization. Asymptomatic.
Monitor for recurrent chest pain
Continue Coreg 6.25 mg twice daily. Monitor heart rate/blood pressure.
HbA1c 5.8%- prediabetes. Advise dietary changes.
#Essential hypertension
Chronic�contributing to coronary artery disease progression
Continue home antihypertensives
Low-sodium diet
#Hyperglycemia
Glucose 150 05/13/2025�may be stress related
#Hypercholesterolemia
Continue statin
Home Repatha every 2 weekly
#GERD
Continue Pepcid
#History of asbestosis
CODE STATUS: Full code
DVT prophylaxis: Heparin
Anticipated Discharge: > 48 hours
Subjective/Interval History
-
Date of Service: May 14, 2025
Patient evaluated at bedside this morning with son present in the room. He states he feels well. No new complaints including shortness of breath, chest pain, palpitations. Patient appears to be happy and is on video call with grandchildren.
Objective Data
-
Labs:
Laboratory Results
05/14/25
04:23
WBC 9.0
Hgb 12.8 L
Hct 37.4 L
Plt Count 138
Sodium 138
Potassium 4.0
Chloride 105
Carbon Dioxide 27
BUN 20
Creatinine 1.0
Glucose 113 H
Calcium 9.0
Total Bilirubin 0.5
AST 70 H
ALT 26
Alkaline Phosphatase 46
Vital Signs:
Vital Signs
Temp Pulse Resp BP Pulse Ox
98.4 F 82 16 117/69 98
05/14/25 07:30 05/14/25 08:00 05/14/25 07:30 05/14/25 07:32 05/14/25 07:30
I&O
05/13/25 05/14/25 05/15/25
06:59 06:59 06:59
Intake Total 1909 / 1909 480 / 480
Output Total 275 / 275
Balance 1635 / 1635 480 / 480
Review of Systems
-
History Source: Patient
All other systems: Reviewed and negative
Physical Exam
-
General: Well Developed, Well Nourished, No Apparent Distress, Comfortable, Conversant and Obese
HEENT: Normocephalic, Atraumatic, Moist Mucous Membranes and Anicteric
Respiratory: Clear to Auscultation
Cardiac: Regular Rhythm and S1/S2
GI: Soft, Nontender, Nondistended and Normal Bowel Sounds
Musculoskeletal: No Clubbing, No Cyanosis and No Edema
Skin: Warm
Neuro: Awake, AO x 3 and Nonfocal/Grossly Intact
Psych: Calm and Intact Judgement/Insight
Data Reviewed
-
Labs: Labs Reviewed by me, Discussed with Physician and Discussed with Patient
Old Records: Reviewed
--- NOTE | 2025-05-14 10:05 | W.PN.CARDCBS ---
Addendum entered and electronically signed by Elli Hammond DO 05/14/25 12:09:
Telemetry sinus rhythm. 5.05-second sinus arrest at 0251 on May 14, 2025 with junctional escape beat. 3.37-second pause at 1:51 AM on May 14, 2025
Original Note:
Today's Communication / Plan
-
Reduce carvedilol and monitor on telemetry
Post [place] supportive care
Impression / Plan
-
Primary Financial Sales Manager: Dr. LUCINA Lew
Assessment:
Presentation with CP
NSTEMI
CAD status post distal circumflex into OM 3 PCI, jailing OM 2 12/2023
Moderate
Mild AI
Mild MR
Hypertension
Hyperlipidemia
Hiatal hernia
History of asbestosis
Former smoker
ECHO 11/19/24: EF 60-65%, mild MR, moderate MR with peak/mean gradients 45/28 mmHg, SHASHA 1.2 cm�, mild to moderate AR, mild TR, PAP 25 to 30 mmHg
Plan:
History of coronary artery disease with chest pain consistent with inferior non-STEMI
- Peak troponin 40.2
- Status post left heart catheterization May 13, [address] Avalos found to have a long 50% mid RCA stenosis and 100% occlusion of the distal vessel. s/p Successful stenting of the proximal to distal RCA with overlapping 3.0 x 8 mm and 3.0 x
38 mm Roger stents and successful stenting of the PDA with a 2.0 x 15 mm [place] stent; Patent mid circumflex-OM 3 stent
- Hemodynamically stable with no further chest pain or pressure.
- Right radial artery attempt, site stable. Right common femoral artery access for PCI, Site stable.
-Twelve-lead EKG this morning normal sinus rhythm with left anterior fascicular block and LVH. NSST
- 2D echocardiogram personally reviewed with normal biventricular size and systolic function and no obvious wall motion abnormalities at rest. Moderate aortic stenosis with peak/mean transaortic gradients 44/24 mmHg and mild AI, similar to study in
October 2024.
- 1 year of uninterrupted dual antiplatelet therapy, continue aspirin/Brilinta
- Lipid profile LDL on Repatha 140 mg subcu every 2 weeks and rosuvastatin 10 mg daily. LDL 18, total cholesterol 82, HDL 36, triglycerides 142.
- Supportive post [place] care
- Cardiac rehab
Sinus arrest/pauses with ventricular escape beat overnight, suspect sleep apnea
- Will decrease carvedilol to 3.125 mg twice daily
- Monitor on telemetry another 24 hours
- Consider outpatient cardiac monitoring
- Recommended sleep study evaluation
Hypertension
� Blood pressure stable on current medical therapy. Will continue to monitor with reduction of carvedilol.
-Goal normotension
Moderate aortic stenosis, stable on recent echocardiogram.
- Outpatient cardiac follow-up
Hyperglycemia/prediabetes with hemoglobin A1c 5.8%.
- Defer to hospitalist. Goal normoglycemia
Discussed with patient, son at bedside. Reviewed with nursing
Progress Note - Financial Sales Manager
Subjective
Date of Service: May 14, 2025
Seen and examined. This morning no complaints. Denies chest pain or pressure, shortness of breath or dizziness. Reviewed telemetry findings overnight with the patient and his son.
Objective
Labs:
05/14/25 04:23
05/14/25 04:23
Labs
Hgb 12.8 g/dL (13.0-18.0) L 05/14/25 04:23
Hct 37.4 % (39.0-52.0) L 05/14/25 04:23
Plt Count 138 10^3/uL (130-400) 05/14/25 04:23
APTT Cancelled 05/13/25 16:00
Sodium 138 mmol/L (135-145) 05/14/25 04:23
Potassium 4.0 mmol/L (3.5-5.1) 05/14/25 04:23
BUN 20 mg/dl (9-20) 05/14/25 04:23
Creatinine 1.0 mg/dL (0.7-1.3) 05/14/25 04:23
Glucose 113 mg/dl (70-99) H 05/14/25 04:23
Troponins
05/13/25 05/13/25 05/13/25
08:29 14:21 17:49
Troponin I 0.247 H* 40.200 H* D 29.900 H* D
05/13/25
19:33
Troponin I Cancelled
Vital Signs and I&O:
Vital Signs
Temp Pulse Resp BP Pulse Ox
98.4 F 82 16 117/69 98
05/14/25 07:30 05/14/25 08:00 05/14/25 07:30 05/14/25 07:32 05/14/25 07:30
Vital Signs
Temp Pulse Resp BP Pulse Ox
98.4 F 82 16 117/69 98
05/14/25 07:30 05/14/25 08:00 05/14/25 07:30 05/14/25 07:32 05/14/25 07:30
Intake & Output
05/12/25 05/13/25 05/14/25 05/15/25
06:59 06:59 06:59 06:59
Intake Total 1909 / 1909 480 / 480
Output Total 275 / 275
Balance 1635 / 1635 480 / 480
Physical Exam
Physical Exam
General: No acute distress, AAOX3, lying supine after cardiac catheterization
Neck: Negative JVD
Heart: Regular. Positive S1-S2. 2 out of 6 systolic murmur.
Lungs: CTA b/l, negative wheezes/rales/rhonchi
Abd: Positive BS, NT/ND, neg rebound/rigidity/guarding
Ext: No edema. Right radial with scab/clean and dry. +2 radial. Right groin site with mild ecchymosis. No hematoma.
Neuro: nonfocal
--- NOTE | 2025-05-14 16:01 | PTCARENOTE ---
Tegaderm removed right AC, fluid filled blisters, appears to be sensitive to tape. Washed with saline, Vaseline gauze applied, gauze and Spandage applied
[2025-05-14] MEDS: COREG 3.125 MG PO (19:35)
--- NOTE | 2025-05-15 01:39 | PTCARENOTE ---
Received pt @ change of shift. AAOx3, VSS-- NSR on monitor. Right radial site clean, dry and intact-- bandaid in place. Right groin site LINDA-- soft to touch, little ecchymotic. Dressing taken off right brachial during day-- blister present, intact,
LINDA. Discussed plan of care for evening. Pt verbalizes understanding. Call stauffer within reach.
[2025-05-15 03:57] VITALS: BP 132/67
[2025-05-15 04:27] LABS: Hematocrit 40.3 % (39.0-52.0); Hemoglobin 13.2 g/dL (13.0-18.0); Mean Corp Hgb Conc. 32.8 g/dL (33.0-37.0); Mean Corpuscular Volume 88.2 fL (80.0-94.0); Nucleated Red Blood Cells % 0 % (-); Platelet Count 167 10^3/uL (130-400); Red Cell Dist. Width 13.2 % (11.5-14.5)
[2025-05-15 04:44] LABS: ALT (SGPT) 24 U/L (0-50); AST (SGOT) 42 U/L (17-59); Albumin 4.4 g/dl (3.5-5.0); Alkaline Phosphatase 48 U/L (38-126); Blood Urea Nitrogen 25 mg/dl (9-20); Calcium 9.3 mg/dl (8.4-10.2); Carbon Dioxide 30 mmol/L (22-30); Chloride 105 mmol/L (98-107); Estimated Creatinine Clearance 55 ml/min; Glucose 112 mg/dl (70-99); Potassium 5.0 mmol/L (3.5-5.1); Sodium 141 mmol/L (135-145); Total Protein 6.8 g/dl (6.3-8.2); eGFR > 60.00
[2025-05-15 07:30] VITALS: BP 117/56; BMI 30.8
--- NOTE | 2025-05-15 08:04 | PTCARENOTE ---
Assumed care of pt from prev nursing shift; Pt AAOx3 w/no c/o CP or SOB. Pt w/VSS w/HR in the 70's & BP 117/56 this AM. Pt w/R radial site w/bandaid C/D/I & R groin site TAILING HAND w/some ecchymosis. No signs or symptoms of bleeding or hematomas at either
site. Pt anxious for D/C today. No addtl needs at this time. Call stauffer within reach.
--- NOTE | 2025-05-15 08:28 | W.PN.HOSP.TC ---
Addendum entered and electronically signed by Consuelo Hoover MD 05/15/25 11:38:
Attending�addendum:
I saw and evaluated the patient. I reviewed the resident�s note and agree with findings and plan as documented in the resident�s note.��Patient seen and examined at bedside, denies any chest pain or shortness of breath, no abdominal pain, no nausea,
no vomiting, no diarrhea or constipation.
NO pauses last night.
Physical�exam:
GENERAL : Patient is awake, alert, oriented x3
HEENT: Nonicteric sclerae, PERRLA, EOMI. Oropharynx clear. Moist mucous membranes. Conjunctivae appear well perfused.
CHEST: Chest wall is nontender.
HEART: Regular rate and rhythm without murmurs.
LUNGS: Clear to auscultation bilaterally.
ABDOMEN: Soft, positive bowel sounds, nontender, no organomegaly.
RECTAL: Deferred.
MUSCLES/EXTREMITIES: No abnormal range of motion, no swelling.SKIN: No rash, no excessive bruising, petechiae, or purpura.
NEUROLOGIC: Cranial nerves II-XII intact without motor/sensory deficit.
�
Assessment/plan:
Non-STEMI.
History of coronary artery disease.
Status post cardiac cath/stent.
Appreciate cardiology input
Sinus pauses.
Lower carvedilol.
resolved
Hypertension/hyperlipidemia/GERD.
Continue current meds
CODE STATUS: Full code
DVT prophylaxis: Heparin
Diet: cardiac
Family communication: Discussed with family at bedside
Disposition: Dc home
Total time spent on today�s encounter was 55 minutes which included time spent in counseling the patient/family regarding diagnosis and treatment plan as listed above, goals of care, and symptom management. Case was discussed with nursing staff,
specialists, and care coordinators/case management. All labs and imaging personally reviewed by me. Remainder the time spent in detailed review of previous records, lab data, imaging, and other medical provider documentation.
Original Note:
Today's Communication/Plan
-
DC today
Assessment / Plan
Assessment / Plan
Impression:
80-year-old male with a past medical history of hypertension, coronary artery disease and asbestosis who presented to the ED with 2 days of substernal chest tightness beginning after significant emotional stressor of [id number] passing away.
Pain was constant with waxing/waning intensity, unrelieved by Pepto-Bismol and improved with rest prompting EMS activation on 05/13/2025. Initial troponins were elevated, EKG showed no acute changes.
Plan:
# NSTEMI
# s/p cardiac catheterization 05/13/2025
# Sinus pause- 2 episodes overnight after cardiac catheterization
# Coronary artery disease
# Prediabetes
2 days of exertional/constant substernal chest tightness following emotional stress. Relieved with rest.
ED findings: Elevated troponin, now downtrending 40.200 --> 29.900 postprocedure
Cardiology following. Recommends dual antiplatelet therapy for 1 year. Continue aspirin 81 mg daily and Brilinta 90 mg p.o. twice daily
Continue rosuvastatin 10 mg. Lipid profile 05/13 normal
HbA1c 5.8%- prediabetes.
5.05-second sinus arrest at 0251 on May 14, 2025 with junctional escape beat.� 3.37-second pause at 1:51 AM on May 14, 2025.
Cardiology following. Reduced carvedilol, monitor on tele. Post [place] supportive care.
Monitor heart rate/blood pressure.
#Essential hypertension
Chronic�contributing to coronary artery disease progression
Continue home antihypertensives
Low-sodium diet
#Hyperglycemia
Glucose 150 05/13/2025�may be stress related
#Hypercholesterolemia
Continue statin
Home Repatha every 2 weekly
#GERD
Continue Pepcid
#History of asbestosis
CODE STATUS: Full code
DVT prophylaxis: Heparin
Anticipated Discharge: Today
Subjective/Interval History
-
Date of Service: May 15, 2025
Patient evaluated at bedside this morning. He states he feels well, no new complaints.
Objective Data
-
Labs:
Laboratory Results
05/15/25
04:04
WBC 8.4
Hgb 13.2
Hct 40.3
Plt Count 167 D
Sodium 141
Potassium 5.0
Chloride 105
Carbon Dioxide 30
BUN 25 H
Creatinine 1.2
Glucose 112 H
Calcium 9.3
Total Bilirubin 0.7
AST 42
ALT 24
Alkaline Phosphatase 48
Vital Signs:
Vital Signs
Temp Pulse Resp BP Pulse Ox
97.8 F 79 18 117/56 97
05/15/25 07:29 05/15/25 07:30 05/15/25 07:29 05/15/25 07:30 05/15/25 07:29
I&O
05/14/25 05/15/25 05/16/25
06:59 06:59 06:59
Intake Total 1909 / 1909 480 / 480
Output Total 275 / 275
Balance 1635 / 1635 480 / 480
Review of Systems
-
History Source: Patient
All other systems: Reviewed and negative
Physical Exam
-
General: Well Developed, Well Nourished, No Apparent Distress, Conversant and Obese
HEENT: Normocephalic, Atraumatic, Moist Mucous Membranes and Anicteric
Respiratory: Clear to Auscultation
Cardiac: Regular Rhythm and S1/S2
GI: Soft, Nontender, Nondistended and Normal Bowel Sounds
Musculoskeletal: No Clubbing, No Cyanosis and No Edema
Skin: Warm
Neuro: Awake and AO x 3
Psych: Calm and Intact Judgement/Insight
Data Reviewed
-
Labs: Labs Reviewed by me, Discussed with Physician and Discussed with Patient
[2025-05-15] MEDS: ASPIR LOW (ENTERIC COATED) 81 MG PO (09:10)
[2025-05-15] MEDS: CRESTOR 10 MG PO (09:10)
[2025-05-15] MEDS: COZAAR 25 MG PO (09:10)
[2025-05-15] MEDS: PEPCID 40 MG PO (09:10)
[2025-05-15] MEDS: BRILINTA 90 MG PO (09:10)
[2025-05-15] MEDS: COREG 3.125 MG PO (09:10)
[2025-05-15 11:05] VITALS: BP 131/63
--- NOTE | 2025-05-15 11:13 | W.DCSUMMARY ---
Addendum entered and electronically signed by Consuelo Hoover MD 05/15/25 11:38:
Attending�addendum:
I saw and evaluated the patient. I reviewed the resident�s note and agree with findings and plan as documented in the resident�s note.��Patient seen and examined at bedside, denies any chest pain or shortness of breath, no abdominal pain, no nausea,
no vomiting, no diarrhea or constipation.
NO pauses last night.
Cleared from cardiology to discharge home today.
Physical�exam:
GENERAL : Patient is awake, alert, oriented x3
HEENT: Nonicteric sclerae, PERRLA, EOMI. Oropharynx clear. Moist mucous membranes. Conjunctivae appear well perfused.
CHEST: Chest wall is nontender.
HEART: Regular rate and rhythm without murmurs.
LUNGS: Clear to auscultation bilaterally.
ABDOMEN: Soft, positive bowel sounds, nontender, no organomegaly.
RECTAL: Deferred.
MUSCLES/EXTREMITIES: No abnormal range of motion, no swelling.SKIN: No rash, no excessive bruising, petechiae, or purpura.
NEUROLOGIC: Cranial nerves II-XII intact without motor/sensory deficit.
�
Assessment/plan:
Non-STEMI.
History of coronary artery disease.
Status post cardiac cath/stent.
Appreciate cardiology input
Sinus pauses.
Lower carvedilol.
resolved
Hypertension/hyperlipidemia/GERD.
Continue current meds
CODE STATUS: Full code
DVT prophylaxis: Heparin
Diet: cardiac
Family communication: Discussed with family at bedside
Disposition: Dc home
Total time spent on today�s encounter was 40 minutes which included time spent in counseling the patient/family regarding diagnosis and treatment plan as listed above, goals of care, and symptom management. Case was discussed with nursing staff,
specialists, and care coordinators/case management. All labs and imaging personally reviewed by me. Remainder the time spent in detailed review of previous records, lab data, imaging, and other medical provider documentation
Original Note:
Documented by User: Angeles Macias MD, Resident 05/15/25 11:22
Discharge Summary
Discharge Data
Date of Admission: 05/13/25
Date of Discharge: 05/15/25
-
Pending Results: No
Hospital Course
Discharging Physician : Dr. Consuelo Hoover and Dr. Angeles Macias
Disposition : Home
Primary care physician : Dr. Eric Loza
Principal Discharge diagnosis : NSTEMI, history of coronary artery disease
Chronic Discharge diagnosis : Hypertension, hyperlipidemia, GERD
Hospital Course : A 80-year-old male with a past medical history of hypertension, coronary artery disease and asbestosis who presented to the ED with 2 days of substernal chest tightness beginning after significant emotional stressor of
[id number] passing away. His chest pain was constant in nature and waxing/waning intensity, unrelieved with Pepto-Bismol and improved with rest prompting EMS activation on 05/13/2025. Initial troponins were elevated, EKG showed no acute
changes. Cardiology was consulted and cardiac catheterization was performed on 05/13/2025. Postprocedure troponins down trended from 40.200 --> 29.900. On 05/14/2025 patient had a 5.05-second sinus arrest at 0251 with junctional escape beat, and
3.37-second pause at 0151 as well. Patient's carvedilol dose was decreased from 6.25 mg to 3.125 mg twice daily. Cardiology recommended dual antiplatelet therapy for 1 year-patient is to continue aspirin 81 mg daily and Brilinta 90 mg twice daily.
Lipid profile 05/13/2025 was normal, patient to continue rosuvastatin 10 mg. Patient is to follow-up with cardiology outpatient on 06/01/2025, and with his PCP in 1 week.
Important imaging findings :
CXR 05/13/25: No acute disease of the chest. Progressed findings suggesting probable prior benign granulomas disease or asbestos exposure. Repeat nonurgent chest CT examination recommended when the patient is able.
Discharge Plan
-
Patient Disposition: Home (Routine Discharge)
Discharge Diagnosis/Procedures: NSTEMI, Angioplasty with stent of RCA x 2
Diet: Low Cholesterol
Activity: As tolerated
Driving Restrictions: No driving for 24 hours
Blood Work: CBC, CMP in 1 week (obtain script from PCP)
Other Services: Cardiac Rehab
Stand Alone Forms: DC Instructions- Cath/EP Lab
Referrals:
Eulalia Wiggins PA-C [Specified Professional Personl, Cardiology] - 06/01/25 2:40 pm
Eric Loza MD [Non-Admitting Privileges, Family Practice] - in less than 1 week
Prescriptions:
New
ticagrelor 90 mg Tablet
90 mg PO BID Qty: 60 12RF
carvedilol 3.125 mg Tablet
3.125 mg PO BID Qty: 60 0RF
Continued
famotidine [Pepcid] 40 mg Tablet
40 mg PO DAILY
losartan 25 mg Tablet
25 mg PO DAILY
aspirin 81 mg Tablet
81 mg PO DAILY
Repatha SureClick 140 mg/mL Pen Injector
140 mg SC Q2W
therapeutic multivitamin Tablet
1 tab PO DAILY
ibuprofen [Advil] 200 mg Tablet
400 mg PO Q6HPRN PRN (Reason: mild pain)
rosuvastatin [Crestor] 10 mg Tablet
10 mg PO DAILY
PreserVision AREDS 2,148 mcg-113 mg-45 mg-17.4mg Tablet
1 tab PO DAILY
Discontinued
carvedilol [Coreg] 6.25 mg Tablet
6.25 mg PO BID
Discharge Orders:
Discharge Patient (As Directed); Ordered 05/15/25
Ordered By: Angeles Macias
Care Plan Goals
Care Plan Goals:
Problem: Readiness for enhanced knowledge related to diagnosis and treatment plan
Goal: Understand your diagnosis and treatment plan needs, including medications if applicable.
Instructions: Know your diagnosis, underlying causes and treatment plan options, including medications if applicable. Consult with your health care team to learn about your diagnosis and treatment plan, including medications if applicable.
Discharge Date and Time
Print Language: MALTESE

Documented by User: Consuelo Hoover MD 05/15/25 11:38
Discharge Summary
Discharge Data
Date of Admission: 05/13/25
Date of Discharge: 05/15/25
Discharge Plan
-
Patient Disposition: Home (Routine Discharge)
Discharge Diagnosis/Procedures: NSTEMI, Angioplasty with stent of RCA x 2
Diet: Low Cholesterol
Activity: As tolerated
Driving Restrictions: No driving for 24 hours
Blood Work: CBC, CMP in 1 week (obtain script from PCP)
Other Services: Cardiac Rehab
Stand Alone Forms: DC Instructions- Cath/EP Lab
Referrals:
Eulalia Wiggins PA-C [Specified Professional Personl, Cardiology] - 06/01/25 2:40 pm
Eric Loza MD [Non-Admitting Privileges, Family Practice] - in less than 1 week
Prescriptions:
New
ticagrelor 90 mg Tablet
90 mg PO BID Qty: 60 12RF
carvedilol 3.125 mg Tablet
3.125 mg PO BID Qty: 60 0RF
Continued
famotidine [Pepcid] 40 mg Tablet
40 mg PO DAILY
losartan 25 mg Tablet
25 mg PO DAILY
aspirin 81 mg Tablet
81 mg PO DAILY
Repatha SureClick 140 mg/mL Pen Injector
140 mg SC Q2W
therapeutic multivitamin Tablet
1 tab PO DAILY
ibuprofen [Advil] 200 mg Tablet
400 mg PO Q6HPRN PRN (Reason: mild pain)
rosuvastatin [Crestor] 10 mg Tablet
10 mg PO DAILY
PreserVision AREDS 2,148 mcg-113 mg-45 mg-17.4mg Tablet
1 tab PO DAILY
Discontinued
carvedilol [Coreg] 6.25 mg Tablet
6.25 mg PO BID
Discharge Orders:
Discharge Patient (As Directed); Ordered 05/15/25
Ordered By: Angeles Macias
Care Plan Goals
Care Plan Goals:
Problem: Readiness for enhanced knowledge related to diagnosis and treatment plan
Goal: Understand your diagnosis and treatment plan needs, including medications if applicable.
Instructions: Know your diagnosis, underlying causes and treatment plan options, including medications if applicable. Consult with your health care team to learn about your diagnosis and treatment plan, including medications if applicable.
Discharge Date and Time
Print Language: MALTESE
--- NOTE | 2025-05-15 11:14 | W.PN.CARDCBS ---
Today's Communication / Plan
-
Stable for discharge home with outpatient cardiac follow-up
Impression / Plan
-
Primary Medical Technologist Microbiology: Dr. LUCINA Lew
Assessment:
Presentation with CP
NSTEMI
CAD status post distal circumflex into OM 3 PCI, jailing OM 2 12/2023
Moderate
Mild AI
Mild MR
Hypertension
Hyperlipidemia
Hiatal hernia
History of asbestosis
Former smoker
ECHO 11/19/24: EF 60-65%, mild MR, moderate MR with peak/mean gradients 45/28 mmHg, SHASHA 1.2 cm�, mild to moderate AR, mild TR, PAP 25 to 30 mmHg
Plan:
History of coronary artery disease with chest pain consistent with inferior non-STEMI
- Peak troponin 40.2
- Status post left heart catheterization May 13, [address] Avalos found to have a long 50% mid RCA stenosis and 100% occlusion of the distal vessel. s/p Successful stenting of the proximal to distal RCA with overlapping 3.0 x 8 mm and 3.0 x
38 mm Roger stents and successful stenting of the PDA with a 2.0 x 15 mm [place] stent; Patent mid circumflex-OM 3 stent
- Hemodynamically stable with no further chest pain or pressure.
- Right radial artery attempt, site stable. Right common femoral artery access for PCI, Site stable.
-Twelve-lead EKG this morning normal sinus rhythm with left anterior fascicular block and LVH. NSST
- 2D echocardiogram personally reviewed with normal biventricular size and systolic function and no obvious wall motion abnormalities at rest. Moderate aortic stenosis with peak/mean transaortic gradients 44/24 mmHg and mild AI, similar to study in
October 2024.
- 1 year of uninterrupted dual antiplatelet therapy, continue aspirin/Brilinta
- Lipid profile LDL on Repatha 140 mg subcu every 2 weeks and rosuvastatin 10 mg daily. LDL 18, total cholesterol 82, HDL 36, triglycerides 142.
- Supportive post [place] care
- Cardiac rehab
Sinus arrest/pauses with ventricular escape beat overnight, suspect sleep apnea
-No further pauses overnight
- Will continue reduced carvedilol to 3.125 mg twice daily
- Recommended sleep study evaluation
Hypertension
� Blood pressure stable on current medical therapy. Will continue to monitor with reduction of carvedilol.
-Goal normotension
Moderate aortic stenosis, stable on recent echocardiogram.
- Outpatient cardiac follow-up
Hyperglycemia/prediabetes with hemoglobin A1c 5.8%.
- Defer to hospitalist. Goal normoglycemia
Stable for discharge home with outpatient cardiac follow-up
Progress Note - Medical Technologist Microbiology
Subjective
Date of Service: May 15, 2025
Seen and examined with at bedside. Ambulating around unit without symptoms.
Objective
Labs:
05/15/25 04:04
05/15/25 04:04
Labs
Hgb 13.2 g/dL (13.0-18.0) 05/15/25 04:04
Hct 40.3 % (39.0-52.0) 05/15/25 04:04
Plt Count 167 10^3/uL (130-400) D 05/15/25 04:04
APTT Cancelled 05/13/25 16:00
Sodium 141 mmol/L (135-145) 05/15/25 04:04
Potassium 5.0 mmol/L (3.5-5.1) 05/15/25 04:04
BUN 25 mg/dl (9-20) H 05/15/25 04:04
Creatinine 1.2 mg/dL (0.7-1.3) 05/15/25 04:04
Glucose 112 mg/dl (70-99) H 05/15/25 04:04
Troponins
05/13/25 05/13/25 05/13/25
08:29 14:21 17:49
Troponin I 0.247 H* 40.200 H* D 29.900 H* D
05/13/25
19:33
Troponin I Cancelled
Vital Signs and I&O:
Vital Signs
Temp Pulse Resp BP Pulse Ox
98.2 F 73 16 117/56 96
05/15/25 11:04 05/15/25 11:04 05/15/25 11:04 05/15/25 07:30 05/15/25 11:04
Vital Signs
Temp Pulse Resp BP Pulse Ox
98.2 F 73 16 117/56 96
05/15/25 11:04 05/15/25 11:04 05/15/25 11:04 05/15/25 07:30 05/15/25 11:04
Intake & Output
05/13/25 05/14/25 05/15/25 05/16/25
06:59 06:59 06:59 06:59
Intake Total 1910 / 0 480 / 480 720 / 720
Output Total 275 / 275
Balance 1635 / 1635 480 / 480 720 / 720
Physical Exam
Physical Exam
General: No acute distress, AAOX3, lying supine after cardiac catheterization
Neck: Negative JVD
Heart: Regular. Positive S1-S2. 2 out of 6 systolic murmur.
Lungs: CTA b/l, negative wheezes/rales/rhonchi
Abd: Positive BS, NT/ND, neg rebound/rigidity/guarding
Ext: No edema. Right radial with scab/clean and dry. +2 radial. Right groin site with mild ecchymosis. No hematoma.
Neuro: nonfocal
[2025-05-15] MEDS: FLUZONE HIGH-DOSE 2025-26 0.5 ML IM (11:54)
--- NOTE | 2025-05-15 12:39 | PTCARENOTE ---
Administered pt's flu shot on D/C as ordered. D/C'd pt's IV line & surveillance monitor. Discussed D/C instructions w/pt, pt's spouse, & pt's daughter, who is an RN. Pt ambulated out w/staff escort w/his spouse driving him home. Pt left w/personal
belongings including cell phone, tablet, & chargers for both.
== END 2025-05-15 12:43 | disposition home or self-care (01) | DRG 322 ==
LOC: IVU 10:57
PROVIDERS: Internal Medicine Interventional Cardiology; ADMITTING PHYSICIAN General Practice; CONSULT PHYSICIAN Internal Medicine Cardiovascular Disease; EMERGENCY PHYSICIAN Emergency Medicine
PROC: 027136Z Dilation of Coronary Artery, Two Arteries with Three Drug-eluting Intraluminal Devices, Percutaneous Approach (ICD-10-PCS; 2025-05-13)
PROC: 4A023N7 Measurement of Cardiac Sampling and Pressure, Left Heart, Percutaneous Approach (ICD-10-PCS; 2025-05-13)
PROC: B2111ZZ Fluoroscopy of Multiple Coronary Arteries using Low Osmolar Contrast (ICD-10-PCS; 2025-05-13)
PROC: 3E02340 Introduction of Influenza Vaccine into Muscle, Percutaneous Approach (ICD-10-PCS; 2025-05-15)
DX: I21.4 Non-ST elevation (NSTEMI) myocardial infarction (principal); I25.10 Atherosclerotic heart disease of native coronary artery without angina pectoris; I10 Essential (primary) hypertension; K21.9 Gastro-esophageal reflux disease without esophagitis; E78.00 Pure hypercholesterolemia, unspecified; J61 Pneumoconiosis due to asbestos and other mineral fibers; R73.03 Prediabetes; I44.0 Atrioventricular block, first degree; I35.2 Nonrheumatic aortic (valve) stenosis with insufficiency; I44.4 Left anterior fascicular block; I45.5 Other specified heart block; G47.30 Sleep apnea, unspecified; Z23 Encounter for immunization; Z95.5 Presence of coronary angioplasty implant and graft; Z87.891 Personal history of nicotine dependence; Z79.82 Long term (current) use of aspirin
CPT/HCPCS: 71046; 80053; 80061; 83036; 84484; 85025; 85347; 85730; 90662; 93005; 93306; 93458; 96365; 96366; 96375; 99152; 99153; 99291; C1725; C1760; C1769; C1874; C1894; C9600; C9601; G0008; Q9967

== ENCOUNTER → 2025-06-13 07:33 | Outpatient (REF) | payer MEDICARE, SELFPAY | LOC: HWRAD 07:33 | PROVIDERS: ATTENDING PHYSICIAN Physician Assistant Medical; FAMILY PHYSICIAN Internal Medicine | DX: I25.10 Atherosclerotic heart disease of native coronary artery without angina pectoris (principal); R09.89 Other specified symptoms and signs involving the circulatory and respiratory systems | CPT/HCPCS: 93880 ==